=== PATIENT | female | born 1960 | race Caucasian/White ===

== ENCOUNTER 2019-03-09 07:49 | Day surgery (SDC) | payer BC, OTHER ==
[2014-12-22 11:26] VITALS: BP 117/86
--- NOTE | 2019-03-11 13:00 | GI Report ---
DATE OF PROCEDURE: 03/09/2019 PROCEDURE PERFORMED: Colonoscopy. INDICATION FOR PROCEDURE: This 58-year-old woman comes in for her first screening colonoscopy. She has a high risk family history. Her father at 72 of colon cancer. She denies any change of bowel habits or bleeding. She did have a gastric sleeve surgery in 2016. PROCEDURE MEDICATION: Propofol, as per Anesthesia. DESCRIPTION OF PROCEDURE: The Olympus video colonoscope was advanced through the rectum. She had a very extremely atonic redundant colon. It took moving into supine position, nurse compression, shortening and straightening loops to finally be able to reach the cecum. The appendiceal orifice was normal. The terminal ileum looked normal. In a couple areas there still was a little residual stool that we did lavage and suction out. On slow withdrawal, the cecum, ascending colon and transverse colon, no obvious intraluminal lesions noted though very redundant. Descending colon and sigmoid: Again, very redundant. No obvious intraluminal lesions were noted on slow withdrawal. Retroflexion in the rectum was normal. The patient tolerated the procedure well. FINDINGS: A very atonic redundant colon. No intraluminal lesions were noted. RECOMMENDATIONS: 1. Would increase fiber in the diet, add MiraLAX if needed. 2. Again, she has high risk family history with her father; consider relook at her colon in 5 years. PEYTON MCGEE M.D., F.A.C.P. ALDO/jerman Job#: [id number] Cc: Dr. Mell BOND
== END 2019-03-09 10:11 | disposition home or self-care (01) ==
LOC: OPSURG 07:49
PROVIDERS: ATTEND Internal Medicine Gastroenterology
DX: Z12.11 Encounter for screening for malignant neoplasm of colon (principal); K59.8 Other specified functional intestinal disorders; K63.89 Other specified diseases of intestine; Z80.0 Family history of malignant neoplasm of digestive organs
CPT/HCPCS: 45378

== ENCOUNTER 2019-08-03 14:40 | Outpatient (CLI) | payer OTHER ==
[2014-12-22 11:26] VITALS: BP 117/86
[2019-08-03 15:34] LABS: BASOPHILS % 0.9 % (0.0-1.5); NEUTROPHILS # 3.6 # k/uL (1.4-7.7)
[2019-08-03 15:35] LABS: eGFR (Non-African) > 60
== END 2019-08-03 14:45 ==
LOC: LAB 14:40
PROVIDERS: ATTEND Family Medicine
DX: Z51.81 Encounter for therapeutic drug level monitoring (principal); Z79.899 Other long term (current) drug therapy
CPT/HCPCS: 36415; 80053; 85025